=== PATIENT | female | born 1935 | race Caucasian/White ===

== ENCOUNTER → 2016-07-26 | Outpatient (CLI) | payer OTHER ==
[2016-07-26 17:01] LABS: HEMOGLOBIN 13.8 g/dL (12.0-16.0)
[2016-07-26 17:09] LABS: HEMATOCRIT 40.7 % (37.0-47.0); MEAN CORPUSCULAR HEMOGLOBIN 32.2 PG (27-31); MEAN CORPUSCULAR HGB CONC 33.9 g/dL (33-37); MEAN PLATELET VOLUME 11.9 FL (7.4-12.2); RDW COEFFICIENT OF VARIATION 12.5 % (11.5-14.5); RED BLOOD COUNT 4.28 10^6/uL (4.20-5.40); WHITE BLOOD COUNT 6.93 10^3/uL (4.8-10.8)
[2016-07-26 17:18] LABS: BILIRUBIN,TOTAL 0.7 mg/dL (0.3-1.2); BUN/CREATININE RATIO 25.45 (6-20); CALCIUM 9.6 mg/dL (8.7-10.7); CREATININE 1.1 mg/dL (0.50-1.20); POTASSIUM 4.7 meq/L (3.8-5.2); TOTAL PROTEIN 7.3 g/dL (6.1-8.0)
== END ==
LOC: LAB 04:50
PROVIDERS: ATTEND Nurse Practitioner
DX: N19 Unspecified kidney failure (principal); J44.9 Chronic obstructive pulmonary disease, unspecified; I25.9 Chronic ischemic heart disease, unspecified
CPT/HCPCS: 80053; 85027